=== PATIENT | male | born 1970 | race Caucasian/White ===

== ENCOUNTER 2024-12-05 20:26 | Emergency (ER) | payer OTHER, SELFPAY ==
[2024-12-05 20:27] VITALS: BP 151/101
[2024-12-05 21:17] VITALS: BMI 30.2
--- NOTE | 2024-12-05 21:51 | ED.GENMED ---
History of Present Illness
General
Chief Complaint: Skin Surface Trauma
Source: patient
Exam Limitations: none
Time Seen by Provider: 12/05/24 21:02
Nursing documentation reviewed up to this point in time: agreed with
History of Present Illness
History of Present Illness:
54-year-old male with past medical history of thrombocytopenia does get this routinely check typically platelet levels in the 80s presenting to the emergency department after cutting his right wrist with garden genesis accidentally. Initially
bleeding was controlled with pressure.
Past History
Past History
ED Past Medical History: Psychiatric (adhd), Other (thrombocytopenia) and Other (CARLOS A on CPAP)
ED Past Surgical History: Orthopedic
Social History
Tobacco: Non-smoker
Personal:
Living: with family
Employment: Employed
Review of Systems
Review of Systems
Allergies reviewed?: Yes
All Other Systems: ROS reviewed and negative except as documented in HPI and ROS
Phy Exam
Physical Exam
Physical Exam:
GENERAL: Alert , in no apparent distress
EYE: pupils equal and reactive
NECK: Supple, no significant adenopathy.
ENT: o/p clr, mmm.
CARDIAC: Regular rate and rhythm .
LUNGS: Clear breath sounds bilaterally, no acute respiratory distress, no wheezes/rales/rhonchi
ABDOMEN: Soft, without focal tenderness, no r/g, no cvat
NEUROLOGICAL: Alert and oriented, no focal neuro deficits
SKIN: Laceration to the right wrist on the palmar aspect 3 cm in total length subcutaneous in depth. Warm and dry, skin intact.
MUSCULOSKELETAL: No edema, well perfused.
PSYCH: Normal and appropriate interaction.
Course
Orders/Labs/Results
Orders:
Orders
12/05/24 21:51
Cephalexin Monohydrate [Keflex] 500 mg PO NOW STA
Tetanus/Diphth/Acelpertussis [Adacel] 0.5 ml IM .ONCE ONE
Vital Signs
Initial and Last Documented VS:
Initial Vital Signs
Temp Pulse Resp BP Pulse Ox
98.1 F 73 18 151/101 97
12/05/24 20:27 12/05/24 20:27 12/05/24 20:27 12/05/24 20:27 12/05/24 20:27
Last Documented Vital Signs
Temp Pulse Resp BP Pulse Ox
98.1 F 73 18 151/101 97
12/05/24 20:27 12/05/24 20:27 12/05/24 20:27 12/05/24 20:27 12/05/24 20:27
Procedures
Laceration Closure
Right Palmar Wrist:
Status of Wound: clean
Size of Wound in cm: 3
Description of Wound Edges: sharp
Preparation: cleaned with saline
Anesthesia: 1% Lidocaine with epi
Revision/Debridement: routine- no revision
Wound exploration: explored to base- no FB
Type of Closure: single layer closure and interrupted sutures
Skin Closure Material: 4-0 nylon
Number of sutures: 3
MDM/Problems Addressed
MDM/Problems Addressed:
54-year-old male presenting to the emergency department today with concerns of a wrist laceration from garden genesis prior to arrival. This was cleaned thoroughly and closed with 3 stitches. Advised for area to be cleaned covered and to be removed
in 12 days. Otherwise given prophylactic antibiotics for the dirty nature of the wound otherwise stable for discharge return precautions given.
*Critical Care Note
Total Time (30-74mins, 75-104mins- exclusive of procedures): Not Applicable
ED Attending Note
-
Portions of this chart may have been created with voice recognition software.� Occasional wrong word or��sound alike� substitutions may have occurred due to the inherent limitations of voice recognition software.
Discharge Plan
Departure
Patient Disposition: Home (Routine Discharge)
Date of Disposition: 12/05/24
Time of Disposition: 22:23
Patient with high blood pressure during this ER visit?: No
Condition: Good
Covid-19: Not Applicable
Discharge Problem:
Laceration of wrist
Instructions: Laceration Repair With Stitches (DC)
Prescriptions:
New
cephalexin 500 mg capsule
500 mg PO TID 3 Days Qty: 9 0RF
No Action
hydrocodone-acetaminophen 1 TABLET tablet
1 tab PO Q4HPRN PRN (Reason: severe pain) Qty: 8 0RF
tamsulosin 0.4 MG capsule
0.4 mg PO DAILY Qty: 14 0RF
ondansetron 4 MG tablet,disintegrating
4 mg PO TIDPRN PRN (Reason: nausea/vomiting) Qty: 8 0RF
hydrocodone-acetaminophen 1 TABLET tablet
1 tab PO Q4HPRN PRN (Reason: severe pain) Qty: 10 0RF
tamsulosin 0.4 MG capsule
0.4 mg PO DAILY Qty: 14 0RF
Referrals:
Rebel Linn DO [Family Provider] -
Activity Restrictions/Additional Instructions:
You came to the emergency department today with concerns of laceration to the right wrist. This was cleaned and closed with 3 stitches. Please keep the area clean covered and take the prescribed antibiotic. Follow-up in 12 days for suture
removal. Return for any worsening, new or concerning symptoms.
Interventions
Interventions:
*Risk Screen - Suicide Last Done: 12/05/24 20:29
*General Assessment Last Done: 12/05/24 20:29
*Neglect/Abuse Screening Last Done: 12/05/24 20:29
*ED- Fall Risk Assessment Last Done: 12/05/24 21:14
*ED COVID-19 Vaccine History Last Done: 12/05/24 20:29
ED-Skin Assessment Last Done: 12/05/24 21:17
Discharge Date and Time
Print Language: CZECH
[2024-12-05] MEDS: KEFLEX 500 MG PO (22:15)
[2024-12-05] MEDS: ADACEL 0.5 ML IM (22:16)
== END 2024-12-05 22:31 | disposition home or self-care (01) ==
LOC: EMR 20:26
PROVIDERS: EMERGENCY PHYSICIAN Emergency Medicine; FAMILY PHYSICIAN Internal Medicine
DX: S61.511A Laceration without foreign body of right wrist, initial encounter (principal); W27.8XXA Contact with other nonpowered hand tool, initial encounter; Z23 Encounter for immunization
CPT/HCPCS: 12002; 90471; 99283; 90715